=== PATIENT | male | born 1970 | race Caucasian/White ===

== ENCOUNTER 2018-03-18 10:38 | Emergency (ER) | END 2018-03-18 16:53 | disposition home or self-care (01) ==

== ENCOUNTER 2019-02-07 18:14 | Emergency (ER) | payer OTHER ==
[~2019-02-07] VITALS: Ht 157.5 cm; Wt 80.4 kg
[~2019-02-07 18:14] MED LIST: FAMO-96 PO
[2019-02-07 18:31] VITALS: Ht 157.5 cm; Wt 80.4 kg
[2019-02-07] MEDS ORDERED: KETOROLAC 30 MG INJ IM STA (21:37)
[2019-02-07] MEDS ORDERED: ONDANSETRON (ODT) 4 MG TAB ODT STA (21:37)
[2019-02-07] MEDS ORDERED: NAPR-985 PO (21:38)
[2019-02-07] MEDS ORDERED: ONDA4TAB8 PO (21:38)
--- NOTE | 2019-02-07 21:39 | ERD ---
ER Documentation Chief Complaint Chief Complaint dizziness with left facial numbness x4days HPI 48-year-old man complains of paresthesias and headache x4 days along with dizziness. He has had similar symptoms in the past and had an episode similar to this 1 year ago. He states the headache is nonexertional and constant and states he used ibuprofen 4 days ago with moderate relief, but since then has not used any other analgesics. He has had intermittent dizziness and paresthesias throughout his body. Patient denies chest pain or abdominal pain, no fevers or chills, no anxiety, no slurred speech, no weakness in his arms or legs ROS All systems reviewed and are negative except as per history of present illness. Medications Home Meds Active Scripts Ondansetron Hcl* (Zofran*) 4 Mg Tablet, 4 MG PO Q8H PRN for NAUSEA AND/OR VOMITING, #30 TAB Prov:MARY LAM MD 02/07/19 Naproxen* (Naprosyn*) 500 Mg Tablet, 500 MG PO BID PRN for PAIN AND/OR INFLAMMATION, #30 TAB Prov:MARY LAM MD 02/07/19 Famotidine* (Pepcid*) 20 Mg Tablet, 20 MG PO BID for 7 Days, TAB Prov:WHITNEY MCCRAY MD 03/18/18 Allergies Allergies: Coded Allergies: No Known Allergy (Unverified , 03/18/18) PMhx/Soc Medical and Surgical Hx: pt denies Medical Hx, pt denies Surgical Hx History of Surgery: No Anesthesia Reaction: No Hx Neurological Disorder: No Hx Respiratory Disorders: No Hx Cardiac Disorders: No Hx Psychiatric Problems: No Hx Miscellaneous Medical Probl: No Hx Alcohol Use: No Hx Substance Use: No Hx Tobacco Use: No Smoking Status: Never smoker FmHx Family History: No diabetes Physical Exam Vitals Vital Signs Date Temp Pulse Resp B/P (MAP) Pulse Ox O2 O2 Flow FiO2 Time Delivery Rate 02/07/19 73 22 123/80 98 Room Air 20:40 (94) 02/07/19 98.0 76 16 141/85 97 18:31 (103) Physical Exam GENERAL: Well-developed, well-nourished, well-hydrated, in no apparent distress, looks nontoxic in appearance HEENT: Moist mucous membranes, pink conjunctiva, no cervical spine tenderness or step-off deformities, no goiter, no jaundice or icterus, extraocular movements intact without pain. No submandibular induration, and no pharyngeal erythema NEURO: Alert and oriented 3, cranial nerves II through XII intact bilaterally, pupils equal round reactive to light, no focal deficits or facial asymmetry, sensation intact distally Strength 5/5 in upper and lower extremities bilaterally CARDIAC: Regular rate and rhythm, no murmurs rubs or gallops LUNGS: Clear bilaterally no wheezing crackles or stridor ABDOMEN: Soft nontender, no guarding, no rigidity, no rebound, no psoas sign no obturator sign. Normoactive bowel sounds SKIN: Warm and dry to touch, no abrasions, contusions, or hematomas, no lacerations, no ecchymosis, no target lesions, and without ulcers EXTREMITIES: No clubbing cyanosis or edema, calves are bilaterally symmetrical, no Homans sign, no popliteal cord sign. Distal pulses equal and bilateral PSYCH: Normal affect without agitation or irritability Results 24 hrs Current Medications Medications Dose Sig/Sharon Start Time Status Last (Trade) Ordered Route PRN Stop Time Admin Dose Reason Admin Ketorolac 30 mg ONCE STAT 02/07/19 DC 02/07/19 Tromethamine IM 21:37 02/07/19 21:51 (Toradol) 21:38 Ondansetron 4 mg ONCE STAT 02/07/19 DC 02/07/19 HCl (Zofran ODT 21:37 02/07/19 21:51 Odt) 21:38 Procedures/MDM IV line was established patient was placed on cardiac cath lab radiology technologist rhythm strip revealed a sinus rhythm at about 70 bpm with upright P and T waves. Patient was afebrile EKG performed, read by me: 71 bpm, normal sinus rhythm, normal axis, no acute ST segment changes, narrow QRS complex, with good R-wave progression in precordial leads. I administered Zofran 4 mg ODT sublingual for complaints of dizziness and nausea and Toradol 30 mg IM x1 for complaints of headache. Patient is generally healthy young man with completely normal vital signs and mild symptoms that he has had before, I treated him here symptomatically and provided prescriptions and recommendation to follow-up with PMD for continued outpatient management. Differential diagnoses considered, included but not limited to acute coronary syndrome, pulmonary embolism, aortic dissection, abdominal aortic aneurysm, sepsis, stroke, meningitis, encephalitis, pneumonia, appendicitis, cholecystitis, bowel obstruction, pyelonephritis, nephrolithiasis, cystitis, as well as metabolic, hematologic, and electrolyte abnormalities. As well as abscess, cellulitis, fractures, and dislocations. Patient feels much better at this time, and vital signs are normal, symptoms have improved. I did give strict instructions to return to the ED if symptoms continue or worsen, patient will otherwise follow-up with primary care physician. Patient understood instructions and agreed to plan. Disclaimer: Inadvertent spelling and grammatical errors are likely due to EHR/dictation software use and do not reflect on the overall quality of patient care. Also, please note that the electronic time recorded on this note does not necessarily reflect the actual time of the patient encounter. Departure Diagnosis: Primary Impression: Dizziness Additional Impression: Headache Headache type: tension-type Headache chronicity pattern: acute headache Intractability: not intractable Qualified Codes: G44.209 - Tension-type h eadache, unspecified, not intractable Condition: Good Patient Instructions: Dizziness, Unk Cause, Headache, Tension Referrals: [facility] (PCP) MARY LAM MD Feb 07, 2019 21:39
[2019-02-07 22:20] VITALS: BP 120/82; PULSE 68; RESP 20
== END 2019-02-07 22:32 | disposition home or self-care (01) ==
LOC: E/R 18:14
DX: G44.209 Tension-type headache, unspecified, not intractable (principal)
CPT/HCPCS: 93005; 96372; J1885; Z7502; Z7610